=== PATIENT | female | born 1965 | race Caucasian/White ===

== ENCOUNTER 2019-09-01 07:23 | Emergency (ER) | payer SELFPAY ==
[~2019-09-01] VITALS: Ht 157.5 cm; Wt 63.6 kg
[2019-09-01 07:26] VITALS: Ht 157.5 cm; Wt 63.6 kg
[2019-09-01 08:37] LABS: BASOPHILS 0.2 % (0-2); EOSINOPHILS 1.2 % (0-7); HEMATOCRIT 41.8 % (36.0-48.0); HEMOGLOBIN 14.6 g/dL (12-16); IMMATURE GRANULOCYTES 0.2 % (0-5); LYMPHOCYTES 15.8 % (15-50); MCH 30.7 pg (26.0-34.0); MCHC 34.9 g/dL (31.0-37.0); MEAN PLATELET VOLUME 9.7 fL (7.4-10.4); MONOCYTES 5.2 % (2-11); NEUTROPHILS 77.4 % (40-80); PLATELET COUNT 237 10x3/uL (130-400); RBC 4.75 10x6/uL (4.00-5.40); RDW 14.1 % (11.5-14.5); WBC 13.1 10x3/uL (4.8-10.8)
[2019-09-01 08:51] LABS: ALBUMIN 3.4 g/dL (3.4-5.0); ALKALINE PHOSPHATASE 97 U/L (46-116); ALT (SGPT) 26 U/L (10-68); AMYLASE - SERUM 31 U/L (25-115); CALC OSMOLALITY 279 mosm/kg (275-300); CALCIUM 8.5 mg/dL (8.5-10.1); CARBON DIOXIDE 27.6 mmol/L (21.0-32.0); CHLORIDE - SERUM 105 mmol/L (98-107); CREATININE - SERUM 0.5 mg/dL (0.6-1.3); GLUCOSE 103 mg/dL (74-106); LIPASE 54 U/L (73-393); POTASSIUM - SERUM 4.2 mmol/L (3.5-5.1); PROTEIN - SERUM 7.4 g/dL (6.4-8.2); SODIUM 142 mmol/L (136-145); UREA NITROGEN 4 mg/dL (7-18); eGFR NON AFRICAN AMERICAN > 90 mL/min (90-120)
[2019-09-01] MEDS ORDERED: ZOFRAN ODT4 MG/UDTAB PO (11:34)
[2019-09-01] MEDS ORDERED: PHAZYME 125 MG125 MG PO (11:34)
[2019-09-01] MEDS ORDERED: PROTONIX40 MG PO (11:34)
[2019-09-01 11:59] VITALS: BP 110/66
== END 2019-09-01 12:07 | disposition home or self-care (01) ==
LOC: D.ER 07:23
PROVIDERS: Family Medicine
DX: R10.9 Unspecified abdominal pain (principal); R53.81 Other malaise